=== PATIENT | female | born 1955 | race Caucasian/White ===

== ENCOUNTER → 2016-06-19 | Outpatient (CLI) | payer OTHER ==
[~2016-06-19] MED LIST: AMINOPHYLLIN200 MG PO; ATIVAN0.5 MG PO; BACTRIM 400 MG-1 TAB; BACTRIM PO; BAYER ASPIRIN C81 MG PO; BAYER GENUINE325 M1 PO; CELLCEPT500 MG PO; CITALOPRAM40 MG PO; Duragesic 25 M25 MCG INTRADERM; Duragesic 50 M50 MCG T; ELIQUIS5 M1 PO; FENTANYL TR50 MCG/HR TD; FLAGYL500 MG PO; FLORINEF ACETA0.1 MG; FLUDROCORTISON0.1 MG PO; GABAPENTIN TAB600 MG PO; LOMOTIL 0.025 M1 TA1 PO; LOPRESSOR25 MG PO; LOVENOX30 MG/0.3; Lopressor25 MG PO; MAG-G500 MG PO; METOPROLOL SUCC25 M2 PO; MIDODRINE HCL2.5 MG PO; MIDODRINE HCL5 M1 PO; NITROGLYCERIN0.4 MG SL; OMEPRAZOLE20 M2 PO; OXYCODONE HYDRO; PAROXETINE40 MG PO; PRAVACHOL20 MG PO; PRILOSEC OTC20 MG PO; PROGRAF1 MG PO; SERTRALINE HYD100 MG PO; SIMVASTATIN20 MG PO; SODIUM BICARBO650 MG PO; STOOL SOFTENER100 MG PO; TACROLIMUS1 MG PO; VICODIN 500 MG-1 TAB PO; VISTARIL50 MG PO; VITAMIN D32000 UNI1 PO; VITAMIN D34000 UNIT PO; ZESTRIL,PRINIVIL5 MG PO; ZOFRAN ODT4 MG SL
[2016-06-19 16:38] LABS: ALBUMIN 3.6 gm/dl (3.1-4.5); ALKALINE PHOSPHATASE 65 U/L (45-117); BILIRUBIN, DIRECT < 0.1 mg/dL (0.0-0.2); BILIRUBIN, TOTAL 0.4 mg/dl (0.2-1.0); SGOT/AST 12 IU/L (3-35); SGPT/ALT 14 U/L (12-78)
== END | disposition home or self-care (01) ==
LOC: LAB 14:58
PROVIDERS: Internal Medicine Cardiovascular Disease
DX: I25.10 Atherosclerotic heart disease of native coronary artery without angina pectoris (principal); E78.2 Mixed hyperlipidemia

== ENCOUNTER → 2016-06-25 | Outpatient (CLI) | payer OTHER ==
--- NOTE | ~2016-06-25 | ST ---
[place], [place] EXERCISE STRESS TEST REPORT NAME: ALVARADO CORTEZ [facility] #: [id number] UNIT #: [id number] ROOM: DOCTOR: COLEEN VANG,FRANSICO BIRTHDATE: [birth year] DOS: 06/25/2016 LEXISCAN STRESS TEST REFERRING PHYSICIAN: Dr. Camacho. REASON FOR TEST: Preoperative and also atrial fibrillation. PHYSICAL EXAMINATION NECK: Supple. LUNGS: Clear anteriorly. HEART: Regular rhythm. PROTOCOL: Lexiscan protocol. Maximum heart rate of 67. Peak blood pressure 98/50. SYMPTOMS: The patient had some nausea, which has resolved after giving 50 mg of intravenous aminophyllin. EKG: Resting EKG showed atrial paced with inferolateral ST-T changes. Stress EKG showed no new changes. CONCLUSION: Clinically, the patient is chest pain free, developed some nausea and dry heaves requiring intravenous aminophyllin 50 mg. EKG, no ischemia, underlying atrial pacing. POST-STRESS COMPLICATIONS: None. The patient received total of 0.4 mg Lexiscan. FRANSICO HORNE MD CM:STRESS:EXERCISE STRESS TEST REPORT [id number] FRANSICO HORNE MD
== END | disposition home or self-care (01) ==
LOC: CARD 02:40
DX: I48.0 Paroxysmal atrial fibrillation (principal); R07.2 Precordial pain; R53.81 Other malaise

== ENCOUNTER → 2016-08-25 | Outpatient (CLI) | payer OTHER ==
[2016-08-25 08:22] LABS: BASO % 0.4 % (0.0-1.0); EOS # 0.3 10*3/uL (0.0-0.4); EOS % 4.4 % (1.0-4.0); HEMATOCRIT 41.5 % (37.0-47.0); HEMOGLOBIN 12.9 g/dl (12.0-16.0); LYMPH # 1.3 10*3/uL (1.3-4.4); MEAN CELL VOLUME 91.6 fl (81.0-99.0); MEAN CORPUSCULAR HGB 28.5 pg (27.0-31.0); MEAN CORPUSCULAR HGB CONC 31.1 g/dl (33.0-37.0); MONO # 0.4 10*3/uL (0.1-1.0); MONO % 6.4 % (3.0-9.0); NEUT # 4.7 10*3/uL (2.3-7.9); NEUT % 69.5 % (47.0-73.0); PLATELET COUNT AUTOMATED 237 10*3/uL (130-400); RED BLOOD COUNT 4.53 10*6/uL (4.10-5.10); WHITE BLOOD COUNT 6.8 10*3/uL (4.8-10.8)
[2016-08-25 08:54] LABS: MAGNESIUM 1.9 mg/dL (1.5-2.1); PHOSPHOROUS 3.4 mg/dL (2.5-4.9); POTASSIUM 4.3 mmol/L (3.5-5.1)
== END | disposition home or self-care (01) ==
LOC: LAB 07:48
PROVIDERS: Internal Medicine Nephrology
DX: E10.8 Type 1 diabetes mellitus with unspecified complications (principal); E55.9 Vitamin D deficiency, unspecified; E34.9 Endocrine disorder, unspecified; D89.9 Disorder involving the immune mechanism, unspecified; E83.40 Disorders of magnesium metabolism, unspecified; T86.90 Unspecified complication of unspecified transplanted organ and tissue; Z94.83 Pancreas transplant status

== ENCOUNTER → 2016-10-29 | Outpatient (CLI) | payer OTHER ==
[2016-10-29 08:18] LABS: BASO % 0.3 % (0.0-1.0); EOS # 0.2 10*3/uL (0.0-0.4); EOS % 2.6 % (1.0-4.0); HEMATOCRIT 41.3 % (37.0-47.0); HEMOGLOBIN 12.9 g/dl (12.0-16.0); LYMPH # 1.1 10*3/uL (1.3-4.4); LYMPH % 11.6 % (27.0-41.0); MEAN CORPUSCULAR HGB 28.7 pg (27.0-31.0); MEAN CORPUSCULAR HGB CONC 31.2 g/dl (33.0-37.0); MEAN PLATELET VOLUME 10.6 fl (9.6-12.3); MONO # 0.6 10*3/uL (0.1-1.0); MONO % 6.1 % (3.0-9.0); NEUT # 7.4 10*3/uL (2.3-7.9); NEUT % 79.2 % (47.0-73.0); PLATELET COUNT AUTOMATED 211 10*3/uL (130-400); RED BLOOD COUNT 4.49 10*6/uL (4.10-5.10); RED CELL DISTRI WIDTH 12.8 % (0-14.5); WHITE BLOOD COUNT 9.4 10*3/uL (4.8-10.8)
[2016-10-29 08:43] LABS: BUN 19 mg/dl (7-24); CARBON DIOXIDE 32 mmol/L (21-32); CHLORIDE 110 mmol/L (98-107); EST GLOM FILT AFRICAN AMERICAN > 60 ml/min; GLUCOSE 93 mg/dL (65-99); MAGNESIUM 1.7 mg/dL (1.5-2.1); PHOSPHOROUS 2.7 mg/dL (2.5-4.9); POTASSIUM 4.3 mmol/L (3.5-5.1); SODIUM 143 mmol/L (136-145); URIC ACID 1.8 mg/dL (2.6-6.0)
== END | disposition home or self-care (01) ==
LOC: LAB 07:54
PROVIDERS: Internal Medicine Nephrology
DX: E10.8 Type 1 diabetes mellitus with unspecified complications (principal); E55.9 Vitamin D deficiency, unspecified; D89.9 Disorder involving the immune mechanism, unspecified; E34.9 Endocrine disorder, unspecified; T86.90 Unspecified complication of unspecified transplanted organ and tissue; Z94.83 Pancreas transplant status

== ENCOUNTER → 2016-11-26 | Outpatient (CLI) | payer OTHER ==
[2016-11-26 07:59] LABS: BASO % 0.3 % (0.0-1.0); EOS # 0.3 10*3/uL (0.0-0.4); EOS % 3.8 % (1.0-4.0); HEMOGLOBIN 12.5 g/dl (12.0-16.0); LYMPH # 1.3 10*3/uL (1.3-4.4); MEAN CELL VOLUME 92.2 fl (81.0-99.0); MEAN CORPUSCULAR HGB 28.8 pg (27.0-31.0); MEAN CORPUSCULAR HGB CONC 31.3 g/dl (33.0-37.0); MEAN PLATELET VOLUME 10.3 fl (9.6-12.3); MONO # 0.5 10*3/uL (0.1-1.0); MONO % 6.8 % (3.0-9.0); NEUT # 4.6 10*3/uL (2.3-7.9); NEUT % 69.8 % (47.0-73.0); PLATELET COUNT AUTOMATED 194 10*3/uL (130-400); RED BLOOD COUNT 4.34 10*6/uL (4.10-5.10); RED CELL DISTRI WIDTH 13.2 % (0-14.5); WHITE BLOOD COUNT 6.6 10*3/uL (4.8-10.8)
[2016-11-26 08:28] LABS: BUN 16 mg/dl (7-24); CARBON DIOXIDE 30 mmol/L (21-32); CHLORIDE 109 mmol/L (98-107); EST GLOM FILT AFRICAN AMERICAN > 60 ml/min; GLUCOSE 98 mg/dL (65-99); MAGNESIUM 1.8 mg/dL (1.5-2.1); PHOSPHOROUS 3.3 mg/dL (2.5-4.9); POTASSIUM 4.2 mmol/L (3.5-5.1); SODIUM 147 mmol/L (136-145)
== END | disposition home or self-care (01) ==
LOC: LAB 07:24
PROVIDERS: Internal Medicine Nephrology
DX: E55.9 Vitamin D deficiency, unspecified (principal); E34.9 Endocrine disorder, unspecified; E10.8 Type 1 diabetes mellitus with unspecified complications; D89.9 Disorder involving the immune mechanism, unspecified; T86.90 Unspecified complication of unspecified transplanted organ and tissue; Z94.83 Pancreas transplant status

== ENCOUNTER → 2016-12-25 | Outpatient (CLI) | payer OTHER ==
[2016-12-25 08:46] LABS: BASO % 0.3 % (0.0-1.0); EOS # 0.3 10*3/uL (0.0-0.4); EOS % 2.7 % (1.0-4.0); HEMATOCRIT 40.6 % (37.0-47.0); HEMOGLOBIN 12.6 g/dl (12.0-16.0); LYMPH # 1.1 10*3/uL (1.3-4.4); LYMPH % 11.4 % (27.0-41.0); MEAN CELL VOLUME 91.6 fl (81.0-99.0); MEAN CORPUSCULAR HGB 28.4 pg (27.0-31.0); MEAN PLATELET VOLUME 10.5 fl (9.6-12.3); MONO # 0.6 10*3/uL (0.1-1.0); MONO % 6.2 % (3.0-9.0); NEUT # 7.4 10*3/uL (2.3-7.9); NEUT % 79.1 % (47.0-73.0); PLATELET COUNT AUTOMATED 220 10*3/uL (130-400); RED BLOOD COUNT 4.43 10*6/uL (4.10-5.10); WHITE BLOOD COUNT 9.4 10*3/uL (4.8-10.8)
[2016-12-25 09:08] LABS: MAGNESIUM 1.6 mg/dL (1.5-2.1); PHOSPHOROUS 3.2 mg/dL (2.5-4.9); POTASSIUM 4.5 mmol/L (3.5-5.1); URIC ACID 1.9 mg/dL (2.6-6.0)
== END | disposition home or self-care (01) ==
LOC: LAB 07:48
PROVIDERS: Internal Medicine Nephrology
DX: E55.9 Vitamin D deficiency, unspecified (principal); D89.9 Disorder involving the immune mechanism, unspecified; T86.90 Unspecified complication of unspecified transplanted organ and tissue; E34.9 Endocrine disorder, unspecified; E10.8 Type 1 diabetes mellitus with unspecified complications; Z94.83 Pancreas transplant status

== ENCOUNTER → 2017-01-26 | Outpatient (CLI) | payer OTHER ==
[2017-01-26 08:20] LABS: BASO % 0.5 % (0.0-1.0); EOS # 0.2 10*3/uL (0.0-0.4); EOS % 3.7 % (1.0-4.0); HEMATOCRIT 41.7 % (37.0-47.0); HEMOGLOBIN 13.2 g/dl (12.0-16.0); LYMPH # 1.1 10*3/uL (1.3-4.4); LYMPH % 16.7 % (27.0-41.0); MEAN CELL VOLUME 92.5 fl (81.0-99.0); MEAN CORPUSCULAR HGB 29.3 pg (27.0-31.0); MEAN CORPUSCULAR HGB CONC 31.7 g/dl (33.0-37.0); MONO # 0.4 10*3/uL (0.1-1.0); MONO % 5.9 % (3.0-9.0); NEUT # 4.6 10*3/uL (2.3-7.9); NEUT % 73.2 % (47.0-73.0); PLATELET COUNT AUTOMATED 207 10*3/uL (130-400); RED BLOOD COUNT 4.51 10*6/uL (4.10-5.10); WHITE BLOOD COUNT 6.3 10*3/uL (4.8-10.8)
[2017-01-26 08:43] LABS: CREATININE 1.31 mg/dL (0.55-1.02); MAGNESIUM 1.6 mg/dL (1.5-2.1); POTASSIUM 3.9 mmol/L (3.5-5.1)
== END | disposition home or self-care (01) ==
LOC: LAB 07:57
PROVIDERS: Internal Medicine Nephrology
DX: E55.9 Vitamin D deficiency, unspecified (principal); E34.9 Endocrine disorder, unspecified; E10.8 Type 1 diabetes mellitus with unspecified complications; D89.9 Disorder involving the immune mechanism, unspecified; T86.90 Unspecified complication of unspecified transplanted organ and tissue; Z94.83 Pancreas transplant status

== ENCOUNTER → 2017-02-09 | Outpatient (CLI) | payer OTHER | END | disposition home or self-care (01) | LOC: RAD 11:16 | DX: K59.09 Other constipation (principal); Z90.49 Acquired absence of other specified parts of digestive tract; Z94.83 Pancreas transplant status ==

== ENCOUNTER → 2017-02-26 | Outpatient (CLI) | payer OTHER ==
[2017-02-26 09:19] LABS: BASO % 0.2 % (0.0-1.0); EOS # 0.2 10*3/uL (0.0-0.4); EOS % 2.2 % (1.0-4.0); HEMATOCRIT 40.8 % (37.0-47.0); HEMOGLOBIN 12.7 g/dl (12.0-16.0); LYMPH # 1.2 10*3/uL (1.3-4.4); LYMPH % 14.4 % (27.0-41.0); MEAN CELL VOLUME 91.9 fl (81.0-99.0); MEAN CORPUSCULAR HGB 28.6 pg (27.0-31.0); MEAN CORPUSCULAR HGB CONC 31.1 g/dl (33.0-37.0); MEAN PLATELET VOLUME 11.2 fl (9.6-12.3); MONO # 0.6 10*3/uL (0.1-1.0); MONO % 7.7 % (3.0-9.0); NEUT % 75.1 % (47.0-73.0); PLATELET COUNT AUTOMATED 225 10*3/uL (130-400); RED BLOOD COUNT 4.44 10*6/uL (4.10-5.10); RED CELL DISTRI WIDTH 12.7 % (0-14.5)
[2017-02-26 09:29] LABS: CREATININE 1.56 mg/dL (0.55-1.02); MAGNESIUM 1.9 mg/dL (1.5-2.1); PHOSPHOROUS 3.1 mg/dL (2.5-4.9); POTASSIUM 4.1 mmol/L (3.5-5.1); URIC ACID 2.2 mg/dL (2.6-6.0)
== END | disposition home or self-care (01) ==
LOC: LAB 07:48
PROVIDERS: Internal Medicine Nephrology
DX: E55.9 Vitamin D deficiency, unspecified (principal); E34.9 Endocrine disorder, unspecified; E10.8 Type 1 diabetes mellitus with unspecified complications; D89.9 Disorder involving the immune mechanism, unspecified; T86.90 Unspecified complication of unspecified transplanted organ and tissue; Z94.83 Pancreas transplant status

== ENCOUNTER → 2017-03-16 | Outpatient (CLI) | payer OTHER ==
[2017-03-16 08:32] LABS: BASO % 0.2 % (0.0-1.0); EOS # 0.2 10*3/uL (0.0-0.4); EOS % 2.2 % (1.0-4.0); HEMATOCRIT 40.8 % (37.0-47.0); HEMOGLOBIN 12.7 g/dl (12.0-16.0); LYMPH # 1.2 10*3/uL (1.3-4.4); LYMPH % 14.1 % (27.0-41.0); MEAN CELL VOLUME 91.3 fl (81.0-99.0); MEAN CORPUSCULAR HGB 28.4 pg (27.0-31.0); MEAN CORPUSCULAR HGB CONC 31.1 g/dl (33.0-37.0); MEAN PLATELET VOLUME 10.5 fl (9.6-12.3); MONO # 0.6 10*3/uL (0.1-1.0); MONO % 6.7 % (3.0-9.0); NEUT # 6.3 10*3/uL (2.3-7.9); NEUT % 76.6 % (47.0-73.0); PLATELET COUNT AUTOMATED 217 10*3/uL (130-400); RED BLOOD COUNT 4.47 10*6/uL (4.10-5.10); RED CELL DISTRI WIDTH 12.4 % (0-14.5); WHITE BLOOD COUNT 8.3 10*3/uL (4.8-10.8)
[2017-03-16 08:47] LABS: CREATININE 1.39 mg/dL (0.55-1.02); MAGNESIUM 1.7 mg/dL (1.5-2.1); PHOSPHOROUS 3.2 mg/dL (2.5-4.9); POTASSIUM 4.6 mmol/L (3.5-5.1); URIC ACID 2.3 mg/dL (2.6-6.0)
== END | disposition home or self-care (01) ==
LOC: LAB 07:43
PROVIDERS: Internal Medicine Nephrology
DX: E10.8 Type 1 diabetes mellitus with unspecified complications (principal); E55.9 Vitamin D deficiency, unspecified; E34.9 Endocrine disorder, unspecified; D89.9 Disorder involving the immune mechanism, unspecified; T86.90 Unspecified complication of unspecified transplanted organ and tissue; Z94.83 Pancreas transplant status

== ENCOUNTER → 2017-04-29 | Outpatient (CLI) | payer OTHER ==
[2017-04-29 08:16] LABS: BASO % 0.6 % (0.0-1.0); EOS # 0.2 10*3/uL (0.0-0.4); EOS % 3.2 % (1.0-4.0); HEMATOCRIT 40.8 % (37.0-47.0); HEMOGLOBIN 12.7 g/dl (12.0-16.0); LYMPH # 1.2 10*3/uL (1.3-4.4); LYMPH % 16.3 % (27.0-41.0); MEAN CELL VOLUME 91.7 fl (81.0-99.0); MEAN CORPUSCULAR HGB 28.5 pg (27.0-31.0); MEAN CORPUSCULAR HGB CONC 31.1 g/dl (33.0-37.0); MEAN PLATELET VOLUME 10.4 fl (9.6-12.3); MONO # 0.5 10*3/uL (0.1-1.0); MONO % 7.2 % (3.0-9.0); NEUT # 5.3 10*3/uL (2.3-7.9); NEUT % 72.4 % (47.0-73.0); PLATELET COUNT AUTOMATED 206 10*3/uL (130-400); RED BLOOD COUNT 4.45 10*6/uL (4.10-5.10); RED CELL DISTRI WIDTH 12.8 % (0-14.5); WHITE BLOOD COUNT 7.3 10*3/uL (4.8-10.8)
[2017-04-29 08:44] LABS: CREATININE 1.32 mg/dL (0.55-1.02); PHOSPHOROUS 2.7 mg/dL (2.5-4.9); POTASSIUM 4.3 mmol/L (3.5-5.1)
== END | disposition home or self-care (01) ==
LOC: LAB 07:54
PROVIDERS: Internal Medicine Nephrology
DX: E83.40 Disorders of magnesium metabolism, unspecified (principal); E34.9 Endocrine disorder, unspecified; E10.8 Type 1 diabetes mellitus with unspecified complications; D89.9 Disorder involving the immune mechanism, unspecified; T86.90 Unspecified complication of unspecified transplanted organ and tissue; Z94.83 Pancreas transplant status

== ENCOUNTER → 2017-06-12 | Outpatient (CLI) | payer OTHER ==
[2017-06-12 09:20] LABS: BASO % 0.4 % (0.0-1.0); EOS # 0.6 10*3/uL (0.0-0.4); EOS % 7.3 % (1.0-4.0); HEMATOCRIT 39.4 % (37.0-47.0); HEMOGLOBIN 12.3 g/dl (12.0-16.0); LYMPH # 1.5 10*3/uL (1.3-4.4); LYMPH % 17.7 % (27.0-41.0); MEAN CORPUSCULAR HGB 28.1 pg (27.0-31.0); MEAN CORPUSCULAR HGB CONC 31.2 g/dl (33.0-37.0); MEAN PLATELET VOLUME 11.1 fl (9.6-12.3); MONO # 0.5 10*3/uL (0.1-1.0); MONO % 5.7 % (3.0-9.0); NEUT # 5.6 10*3/uL (2.3-7.9); NEUT % 68.5 % (47.0-73.0); PLATELET COUNT AUTOMATED 239 10*3/uL (130-400); RED BLOOD COUNT 4.38 10*6/uL (4.10-5.10); RED CELL DISTRI WIDTH 12.7 % (0-14.5); WHITE BLOOD COUNT 8.2 10*3/uL (4.8-10.8)
[2017-06-12 09:22] LABS: CREATININE 1.54 mg/dL (0.55-1.02); PHOSPHOROUS 2.7 mg/dL (2.5-4.9); POTASSIUM 3.9 mmol/L (3.5-5.1); URIC ACID 1.8 mg/dL (2.6-6.0)
== END | disposition home or self-care (01) ==
LOC: LAB 08:05
PROVIDERS: Internal Medicine Nephrology
DX: Z48.89 Encounter for other specified surgical aftercare (principal); Z94.0 Kidney transplant status

== ENCOUNTER → 2017-07-22 | Outpatient (CLI) | payer OTHER ==
[2017-07-22 08:42] LABS: BASO % 0.7 % (0.0-1.0); EOS # 0.2 10*3/uL (0.0-0.4); EOS % 3.8 % (1.0-4.0); HEMATOCRIT 40.4 % (37.0-47.0); HEMOGLOBIN 12.4 g/dl (12.0-16.0); LYMPH # 1.1 10*3/uL (1.3-4.4); LYMPH % 18.3 % (27.0-41.0); MEAN CELL VOLUME 90.6 fl (81.0-99.0); MEAN CORPUSCULAR HGB 27.8 pg (27.0-31.0); MEAN CORPUSCULAR HGB CONC 30.7 g/dl (33.0-37.0); MEAN PLATELET VOLUME 11.1 fl (9.6-12.3); MONO # 0.4 10*3/uL (0.1-1.0); MONO % 7.4 % (3.0-9.0); NEUT # 4.1 10*3/uL (2.3-7.9); NEUT % 69.5 % (47.0-73.0); PLATELET COUNT AUTOMATED 203 10*3/uL (130-400); RED BLOOD COUNT 4.46 10*6/uL (4.10-5.10); RED CELL DISTRI WIDTH 13.2 % (0-14.5); WHITE BLOOD COUNT 5.9 10*3/uL (4.8-10.8)
[2017-07-22 09:05] LABS: CREATININE 1.37 mg/dL (0.55-1.02); PHOSPHOROUS 3.2 mg/dL (2.5-4.9); POTASSIUM 4.7 mmol/L (3.5-5.1); URIC ACID 2.2 mg/dL (2.6-6.0)
== END | disposition home or self-care (01) ==
LOC: LAB 07:58
PROVIDERS: Internal Medicine Nephrology
DX: Z48.22 Encounter for aftercare following kidney transplant (principal); Z94.0 Kidney transplant status

== ENCOUNTER → 2017-08-06 | Outpatient (CLI) | payer OTHER ==
[2017-08-06 08:37] LABS: BASO % 0.5 % (0.0-1.0); EOS # 0.3 10*3/uL (0.0-0.4); EOS % 3.6 % (1.0-4.0); HEMATOCRIT 40.4 % (37.0-47.0); HEMOGLOBIN 12.5 g/dl (12.0-16.0); LYMPH # 1.5 10*3/uL (1.3-4.4); LYMPH % 19.6 % (27.0-41.0); MEAN CELL VOLUME 90.8 fl (81.0-99.0); MEAN CORPUSCULAR HGB 28.1 pg (27.0-31.0); MEAN CORPUSCULAR HGB CONC 30.9 g/dl (33.0-37.0); MEAN PLATELET VOLUME 10.8 fl (9.6-12.3); MONO # 0.6 10*3/uL (0.1-1.0); MONO % 7.4 % (3.0-9.0); NEUT # 5.2 10*3/uL (2.3-7.9); NEUT % 68.6 % (47.0-73.0); PLATELET COUNT AUTOMATED 209 10*3/uL (130-400); RED BLOOD COUNT 4.45 10*6/uL (4.10-5.10); RED CELL DISTRI WIDTH 13.2 % (0-14.5); WHITE BLOOD COUNT 7.5 10*3/uL (4.8-10.8)
[2017-08-06 09:02] LABS: ALBUMIN 3.6 gm/dl (3.1-4.5); CREATININE 1.6 mg/dL (0.55-1.02)
[2017-08-06 09:03] LABS: PHOSPHOROUS 3.3 mg/dL (2.5-4.9); URIC ACID 2.4 mg/dL (2.6-6.0)
[2017-08-06 09:04] LABS: TOTAL PROTEIN 7.2 gm/dL (6.4-8.2)
== END | disposition home or self-care (01) ==
LOC: LAB 07:54
PROVIDERS: Family Medicine; Specialist
DX: I10 Essential (primary) hypertension (principal); E78.00 Pure hypercholesterolemia, unspecified; D89.9 Disorder involving the immune mechanism, unspecified; T86.90 Unspecified complication of unspecified transplanted organ and tissue; E83.40 Disorders of magnesium metabolism, unspecified; Z79.899 Other long term (current) drug therapy; Z94.83 Pancreas transplant status

== ENCOUNTER → 2017-08-26 | Outpatient (CLI) | payer OTHER ==
[2017-08-26 08:24] LABS: BASO % 0.5 % (0.0-1.0); EOS # 0.2 10*3/uL (0.0-0.4); EOS % 2.8 % (1.0-4.0); HEMATOCRIT 40.8 % (37.0-47.0); HEMOGLOBIN 13.1 g/dl (12.0-16.0); LYMPH # 1.2 10*3/uL (1.3-4.4); LYMPH % 16.1 % (27.0-41.0); MEAN CELL VOLUME 89.5 fl (81.0-99.0); MEAN CORPUSCULAR HGB 28.7 pg (27.0-31.0); MEAN CORPUSCULAR HGB CONC 32.1 g/dl (33.0-37.0); MEAN PLATELET VOLUME 10.8 fl (9.6-12.3); MONO # 0.5 10*3/uL (0.1-1.0); MONO % 6.3 % (3.0-9.0); NEUT # 5.5 10*3/uL (2.3-7.9); NEUT % 74.2 % (47.0-73.0); PLATELET COUNT AUTOMATED 205 10*3/uL (130-400); RED BLOOD COUNT 4.56 10*6/uL (4.10-5.10); WHITE BLOOD COUNT 7.4 10*3/uL (4.8-10.8)
[2017-08-26 08:47] LABS: CREATININE 1.42 mg/dL (0.55-1.02); PHOSPHOROUS 2.7 mg/dL (2.5-4.9); POTASSIUM 3.9 mmol/L (3.5-5.1); URIC ACID 2.1 mg/dL (2.6-6.0)
== END | disposition home or self-care (01) ==
LOC: LAB 07:48
PROVIDERS: Specialist
DX: E83.40 Disorders of magnesium metabolism, unspecified (principal); D89.9 Disorder involving the immune mechanism, unspecified; T86.90 Unspecified complication of unspecified transplanted organ and tissue; Z79.899 Other long term (current) drug therapy; Z94.83 Pancreas transplant status

== ENCOUNTER 2017-08-30 07:33 | Emergency (ER) | payer OTHER ==
[~2017-08-30] VITALS: Ht 172.7 cm; Wt 77.1 kg
[2017-08-30 07:39] VITALS: BP 134/45
[2017-08-30] MEDS ORDERED: WELLBUTRIN SR150 MG PO (07:44)
== END 2017-08-30 09:19 | disposition home or self-care (01) ==
LOC: ED 07:33
DX: S96.912A Strain of unspecified muscle and tendon at ankle and foot level, left foot, initial encounter (principal); S93.602A Unspecified sprain of left foot, initial encounter; S93.402A Sprain of unspecified ligament of left ankle, initial encounter; I25.10 Atherosclerotic heart disease of native coronary artery without angina pectoris; E78.5 Hyperlipidemia, unspecified; E11.40 Type 2 diabetes mellitus with diabetic neuropathy, unspecified; Z79.899 Other long term (current) drug therapy; W05.0XXA Fall from non-moving wheelchair, initial encounter; Y93.89 Activity, other specified; Y92.89 Other specified places as the place of occurrence of the external cause; Y99.8 Other external cause status

== ENCOUNTER → 2017-09-23 | Outpatient (CLI) | payer OTHER ==
[~2017-09-23] MED LIST changes: +WELLBUTRIN SR150 MG PO
[2017-09-23 09:16] LABS: BASO % 0.4 % (0.0-1.0); EOS # 0.2 10*3/uL (0.0-0.4); EOS % 2.7 % (1.0-4.0); HEMATOCRIT 42.4 % (37.0-47.0); HEMOGLOBIN 12.9 g/dl (12.0-16.0); LYMPH # 1.2 10*3/uL (1.3-4.4); LYMPH % 16.6 % (27.0-41.0); MEAN CORPUSCULAR HGB 28.6 pg (27.0-31.0); MEAN CORPUSCULAR HGB CONC 30.4 g/dl (33.0-37.0); MEAN PLATELET VOLUME 10.6 fl (9.6-12.3); MONO # 0.5 10*3/uL (0.1-1.0); MONO % 7.2 % (3.0-9.0); NEUT # 5.1 10*3/uL (2.3-7.9); NEUT % 72.8 % (47.0-73.0); PLATELET COUNT AUTOMATED 200 10*3/uL (130-400); RED BLOOD COUNT 4.51 10*6/uL (4.10-5.10); RED CELL DISTRI WIDTH 13.2 % (0-14.5)
[2017-09-23 09:43] LABS: POTASSIUM 4.5 mmol/L (3.5-5.1); URIC ACID 2.3 mg/dL (2.6-6.0)
[2017-09-23 09:44] LABS: CREATININE 1.47 mg/dL (0.55-1.02); PHOSPHOROUS 3.2 mg/dL (2.5-4.9)
== END | disposition home or self-care (01) ==
LOC: LAB 08:39
PROVIDERS: Specialist
DX: D89.9 Disorder involving the immune mechanism, unspecified (principal); E83.40 Disorders of magnesium metabolism, unspecified; T86.90 Unspecified complication of unspecified transplanted organ and tissue; Z94.83 Pancreas transplant status; Z79.899 Other long term (current) drug therapy

== ENCOUNTER → 2017-10-21 | Outpatient (CLI) | payer OTHER ==
[2017-10-21 08:58] LABS: BASO % 0.5 % (0.0-1.0); EOS # 0.1 10*3/uL (0.0-0.4); EOS % 2.3 % (1.0-4.0); HEMATOCRIT 42.5 % (37.0-47.0); HEMOGLOBIN 13.1 g/dl (12.0-16.0); LYMPH % 15.9 % (27.0-41.0); MEAN CELL VOLUME 92.4 fl (81.0-99.0); MEAN CORPUSCULAR HGB 28.5 pg (27.0-31.0); MEAN CORPUSCULAR HGB CONC 30.8 g/dl (33.0-37.0); MEAN PLATELET VOLUME 10.5 fl (9.6-12.3); MONO # 0.5 10*3/uL (0.1-1.0); MONO % 8.1 % (3.0-9.0); NEUT # 4.4 10*3/uL (2.3-7.9); PLATELET COUNT AUTOMATED 209 10*3/uL (130-400); RED CELL DISTRI WIDTH 12.9 % (0-14.5)
[2017-10-21 09:16] LABS: CREATININE 1.3 mg/dL (0.55-1.02); PHOSPHOROUS 3.2 mg/dL (2.5-4.9); POTASSIUM 3.9 mmol/L (3.5-5.1); URIC ACID 2.1 mg/dL (2.6-6.0)
== END | disposition home or self-care (01) ==
LOC: LAB 08:33
PROVIDERS: Specialist
DX: E83.40 Disorders of magnesium metabolism, unspecified (principal); D89.9 Disorder involving the immune mechanism, unspecified; T86.90 Unspecified complication of unspecified transplanted organ and tissue; Z94.83 Pancreas transplant status; Z79.899 Other long term (current) drug therapy

== ENCOUNTER → 2017-12-29 | Outpatient (CLI) | payer OTHER ==
[2017-12-29 07:45] LABS: BASO % 0.3 % (0.0-1.0); EOS # 0.2 10*3/uL (0.0-0.4); EOS % 2.7 % (1.0-4.0); HEMATOCRIT 41.2 % (37.0-47.0); HEMOGLOBIN 12.8 g/dl (12.0-16.0); LYMPH # 1.2 10*3/uL (1.3-4.4); LYMPH % 17.4 % (27.0-41.0); MEAN CORPUSCULAR HGB 28.6 pg (27.0-31.0); MEAN CORPUSCULAR HGB CONC 31.1 g/dl (33.0-37.0); MEAN PLATELET VOLUME 10.6 fl (9.6-12.3); MONO # 0.5 10*3/uL (0.1-1.0); MONO % 6.7 % (3.0-9.0); NEUT # 4.9 10*3/uL (2.3-7.9); NEUT % 72.6 % (47.0-73.0); PLATELET COUNT AUTOMATED 193 10*3/uL (130-400); RED BLOOD COUNT 4.48 10*6/uL (4.10-5.10); RED CELL DISTRI WIDTH 12.8 % (0-14.5); WHITE BLOOD COUNT 6.7 10*3/uL (4.8-10.8)
[2017-12-29 08:09] LABS: CREATININE 1.44 mg/dL (0.55-1.02); PHOSPHOROUS 3.2 mg/dL (2.5-4.9); POTASSIUM 4.2 mmol/L (3.5-5.1); URIC ACID 2.5 mg/dL (2.6-6.0)
== END | disposition home or self-care (01) ==
LOC: LAB 07:26
PROVIDERS: Specialist
DX: E83.40 Disorders of magnesium metabolism, unspecified (principal); T86.90 Unspecified complication of unspecified transplanted organ and tissue; D89.9 Disorder involving the immune mechanism, unspecified; Z79.899 Other long term (current) drug therapy; Z94.83 Pancreas transplant status

== ENCOUNTER 2018-06-23 10:12 | Emergency (ER) | payer OTHER ==
[~2018-06-23] VITALS: Ht 172.7 cm; Wt 77.1 kg
[2018-06-23 10:17] VITALS: BP 117/60
[2018-06-23 11:11] LABS: BASO % 0.5 % (0.0-1.0); EOS # 0.2 10*3/uL (0.0-0.4); EOS % 2.5 % (1.0-4.0); HEMATOCRIT 37.8 % (37.0-47.0); HEMOGLOBIN 11.7 g/dl (12.0-16.0); LYMPH # 0.9 10*3/uL (1.3-4.4); MEAN CELL VOLUME 94.5 fl (81.0-99.0); MEAN CORPUSCULAR HGB 29.3 pg (27.0-31.0); MEAN PLATELET VOLUME 10.3 fl (9.6-12.3); MONO # 0.6 10*3/uL (0.1-1.0); MONO % 9.5 % (3.0-9.0); NEUT # 4.5 10*3/uL (2.3-7.9); NEUT % 73.3 % (47.0-73.0); PLATELET COUNT AUTOMATED 190 10*3/uL (130-400); WHITE BLOOD COUNT 6.1 10*3/uL (4.8-10.8)
[2018-06-23] MEDS ORDERED: GABAPENTIN800 MG PO (11:11)
[2018-06-23] MEDS ORDERED: SIMVASTATIN10 MG PO (11:12)
[2018-06-23] MEDS ORDERED: SERTRALINE HYD100 MG PO (11:12)
[2018-06-23] MEDS ORDERED: DURAGESIC1 EAC2 TD (11:12)
[2018-06-23] MEDS ORDERED: WELLBUTRIN SR150 MG PO (11:13)
[2018-06-23] MEDS ORDERED: MIDODRINE HCL5 M1 PO (11:13)
[2018-06-23] MEDS ORDERED: FLUDROCORTISON0.1 MG PO (11:13)
[2018-06-23] MEDS ORDERED: ELIQUIS5 M1 PO (11:14)
[2018-06-23] MEDS ORDERED: BACTRIM 400-801 EACH PO (11:15)
[2018-06-23] MEDS ORDERED: TACROLIMUS1 M1 PO (11:15)
[2018-06-23] MEDS ORDERED: MYCOPHENOLATE500 MG PO (11:16)
[2018-06-23] MEDS ORDERED: CONSTULOSE10 GM/151 PO (11:16)
[2018-06-23] MEDS ORDERED: TOPROL XL25 MG PO (11:16)
[2018-06-23 11:25] LABS: ALBUMIN 3.1 gm/dl (3.1-4.5); CREATININE 1.27 mg/dL (0.55-1.02); TOTAL PROTEIN 6.5 gm/dL (6.4-8.2)
[2018-06-23 11:30] LABS: BILIRUBIN NEGATIVE (NEGATIVE); BLOOD 1+ (NEGATIVE); CLARITY CLOUDY (CLEAR); COLOR YELLOW (YELLOW); GLUCOSE NEGATIVE (NEGATIVE); KETONE TRACE (NEGATIVE); LEUKO ESTERASE 1+ (NEGATIVE); NITRITE POSITIVE (NEGATIVE); SPECIFIC GRAVITY >= 1.030 (1.005-1.030)
[2018-06-23 11:43] LABS: BACTERIA 3+; CALCIUM OXALATE CRYSTALS 1+; WBC 41-50 wbc/hpf (0-5)
[2018-06-23] MEDS ORDERED: CEFUROXIME AXE500 MG PO (12:19)
== END 2018-06-23 12:30 | disposition home or self-care (01) ==
LOC: ED 10:12
PROVIDERS: Nurse Practitioner Family
DX: N39.0 Urinary tract infection, site not specified (principal); K59.00 Constipation, unspecified; Z79.899 Other long term (current) drug therapy

== ENCOUNTER → 2018-07-25 | Outpatient (CLI) | payer OTHER ==
[~2018-07-25] MED LIST changes: +BACTRIM 400-801 EACH PO; +CEFUROXIME AXE500 MG PO; +CONSTULOSE10 GM/151 PO; +DURAGESIC1 EAC2 TD; +GABAPENTIN800 MG PO; +MYCOPHENOLATE500 MG PO; +SIMVASTATIN10 MG PO; +TACROLIMUS1 M1 PO; +TOPROL XL25 MG PO
[2018-07-25 09:51] LABS: BASO % 0.6 % (0.0-1.0); EOS # 0.2 10*3/uL (0.0-0.4); EOS % 2.3 % (1.0-4.0); HEMATOCRIT 40.4 % (37.0-47.0); HEMOGLOBIN 12.8 g/dl (12.0-16.0); LYMPH % 13.5 % (27.0-41.0); MEAN CELL VOLUME 93.3 fl (81.0-99.0); MEAN CORPUSCULAR HGB 29.6 pg (27.0-31.0); MEAN CORPUSCULAR HGB CONC 31.7 g/dl (33.0-37.0); MEAN PLATELET VOLUME 10.8 fl (9.6-12.3); MONO # 0.6 10*3/uL (0.1-1.0); MONO % 8.3 % (3.0-9.0); NEUT # 5.3 10*3/uL (2.3-7.9); PLATELET COUNT AUTOMATED 215 10*3/uL (130-400); RED BLOOD COUNT 4.33 10*6/uL (4.10-5.10); RED CELL DISTRI WIDTH 12.8 % (0-14.5); WHITE BLOOD COUNT 7.1 10*3/uL (4.8-10.8)
[2018-07-25 09:53] LABS: URINE CREATININE RANDOM 60.9 mg/dL
[2018-07-25 10:11] LABS: ALBUMIN 3.7 gm/dl (3.1-4.5); CREATININE 1.62 mg/dL (0.55-1.02); POTASSIUM 3.7 mmol/L (3.5-5.1); TOTAL PROTEIN 7.3 gm/dL (6.4-8.2); URIC ACID 2.4 mg/dL (2.6-6.0)
[2018-07-25 10:58] LABS: PTH INTACT 180.5 pg/mL (18.5-88.0); VITAMIN D, 25-HYDROXY 22.9 ng/mL (30-100)
== END | disposition home or self-care (01) ==
LOC: LAB 08:56
PROVIDERS: Internal Medicine Nephrology
DX: E55.9 Vitamin D deficiency, unspecified (principal); T86.90 Unspecified complication of unspecified transplanted organ and tissue; Z94.83 Pancreas transplant status; Z79.899 Other long term (current) drug therapy

== ENCOUNTER → 2018-10-05 | Outpatient (CLI) | payer OTHER ==
[2018-10-05 09:38] LABS: BASO % 0.5 % (0.0-1.0); EOS # 0.2 10*3/uL (0.0-0.4); EOS % 3.6 % (1.0-4.0); HEMATOCRIT 41.7 % (37.0-47.0); HEMOGLOBIN 12.8 g/dl (12.0-16.0); LYMPH # 0.8 10*3/uL (1.3-4.4); MEAN CELL VOLUME 94.3 fl (81.0-99.0); MEAN CORPUSCULAR HGB CONC 30.7 g/dl (33.0-37.0); MEAN PLATELET VOLUME 11.2 fl (9.6-12.3); MONO # 0.4 10*3/uL (0.1-1.0); MONO % 5.9 % (3.0-9.0); NEUT # 4.9 10*3/uL (2.3-7.9); NEUT % 76.8 % (47.0-73.0); PLATELET COUNT AUTOMATED 191 10*3/uL (130-400); RED BLOOD COUNT 4.42 10*6/uL (4.10-5.10); RED CELL DISTRI WIDTH 12.9 % (0-14.5); WHITE BLOOD COUNT 6.3 10*3/uL (4.8-10.8)
[2018-10-05 10:00] LABS: ALBUMIN 3.7 gm/dl (3.1-4.5); PHOSPHOROUS 2.9 mg/dL (2.5-4.9)
[2018-10-05 10:02] LABS: URINE CREATININE RANDOM 63.2 mg/dL
[2018-10-05 10:02] LABS: CREATININE 1.42 mg/dL (0.55-1.02); URIC ACID 2.2 mg/dL (2.6-6.0)
[2018-10-05 10:54] LABS: VITAMIN D, 25-HYDROXY 30.1 ng/mL (30-100)
[2018-10-05 10:55] LABS: PTH INTACT 153.5 pg/mL (18.5-88.0)
== END | disposition home or self-care (01) ==
LOC: LAB 08:53
PROVIDERS: Internal Medicine Nephrology
DX: Z94.83 Pancreas transplant status (principal); T86.91 Unspecified transplanted organ and tissue rejection; Z79.899 Other long term (current) drug therapy; E55.9 Vitamin D deficiency, unspecified

== ENCOUNTER → 2018-12-29 | Outpatient (CLI) | payer OTHER ==
[2018-12-29 08:20] LABS: BASO % 0.6 % (0.0-1.0); EOS # 0.2 10*3/uL (0.0-0.4); EOS % 3.2 % (1.0-4.0); HEMATOCRIT 40.5 % (37.0-47.0); HEMOGLOBIN 12.4 g/dl (12.0-16.0); LYMPH # 1.5 10*3/uL (1.3-4.4); MEAN CELL VOLUME 94.4 fl (81.0-99.0); MEAN CORPUSCULAR HGB 28.9 pg (27.0-31.0); MEAN CORPUSCULAR HGB CONC 30.6 g/dl (33.0-37.0); MONO # 0.6 10*3/uL (0.1-1.0); MONO % 8.7 % (3.0-9.0); NEUT # 4.3 10*3/uL (2.3-7.9); NEUT % 64.3 % (47.0-73.0); PLATELET COUNT AUTOMATED 209 10*3/uL (130-400); RED BLOOD COUNT 4.29 10*6/uL (4.10-5.10); RED CELL DISTRI WIDTH 13.4 % (0-14.5); WHITE BLOOD COUNT 6.7 10*3/uL (4.8-10.8)
[2018-12-29 08:37] LABS: CREATININE 1.89 mg/dL (0.55-1.02); PHOSPHOROUS 3.6 mg/dL (2.5-4.9); POTASSIUM 4.6 mmol/L (3.5-5.1); URIC ACID 3.3 mg/dL (2.6-6.0)
== END | disposition home or self-care (01) ==
LOC: LAB 07:32
PROVIDERS: Nurse Practitioner Family
DX: D89.9 Disorder involving the immune mechanism, unspecified (principal); T86.90 Unspecified complication of unspecified transplanted organ and tissue; E83.40 Disorders of magnesium metabolism, unspecified; Z79.899 Other long term (current) drug therapy

== ENCOUNTER 2019-02-04 09:09 | Inpatient (IN) | payer OTHER ==
[2019-02-04] VITALS (8 sets, daily range): BP systolic 119–166; BP diastolic 44–62
[~2019-02-04] VITALS: Ht 175.3 cm; Wt 82.6 kg
--- NOTE | ~2019-02-04 | EKG ---
[place], [place] ELECTROCARDIOGRAM REPORT NAME: ALVARADO CORTEZ UNIT #: [id number] ROOM: 504 DOCTOR: JAVI DRAFT REPORT BIRTHDATE: [birth year] [facility] Test Date: 2019-02-04 Test Time: 10:16:04 Pat Name: ALVARADO CORTEZ Department: Room: [facility] Gender: F Nail Specialist: Theresa Gnat : 1955 Requested By: SAUL PIERRE Order Number: [id number] Reading MD: Ruth Green MD Measurements Intervals [place] Rate: 64 P: 84 SD: 154 QRS: 78 QRSD: 91 T: 74 QT: 508 QTc: 525 Interpretive Statements Sinus rhythm Borderline ST depression, anterolateral leads Prolonged QT interval No previous ECG available for comparison Electronically Signed On 02-06-2019 7:44:53 PDT by Ruth Green MD CM:EKGRPT:ELECTROCARDIOGRAM REPORT [id number] SAUL PINTO DRAFT REPORT SAUL PIERRE DO
[~2019-02-04 09:09] MED LIST changes: +DURAGESIC1 EAC2 T; -DURAGESIC1 EAC2 TD
[2019-02-04 10:51] LABS: BASO % 0.3 % (0.0-1.0); EOS % 0.3 % (1.0-4.0); HEMATOCRIT 39.7 % (37.0-47.0); HEMOGLOBIN 12.7 g/dl (12.0-16.0); LYMPH # 1.1 10*3/uL (1.3-4.4); LYMPH % 9.4 % (27.0-41.0); MEAN CELL VOLUME 91.1 fl (81.0-99.0); MEAN CORPUSCULAR HGB 29.1 pg (27.0-31.0); MEAN PLATELET VOLUME 11.6 fl (9.6-12.3); MONO # 0.7 10*3/uL (0.1-1.0); MONO % 5.9 % (3.0-9.0); NEUT % 83.8 % (47.0-73.0); PLATELET COUNT AUTOMATED 222 10*3/uL (130-400); RED BLOOD COUNT 4.36 10*6/uL (4.10-5.10); RED CELL DISTRI WIDTH 12.8 % (0-14.5); WHITE BLOOD COUNT 11.9 10*3/uL (4.8-10.8)
[2019-02-04 11:05] LABS: ACT PARTIAL THROMBO TIME 27.1 SECONDS (20.0-32.1); INTERNATIONAL NORM RATIO 1.1 (2.0-3.5)
[2019-02-04 11:08] LABS: BUN 19 mg/dl (7-24); CHLORIDE 104 mmol/L (98-107); LIPASE 97 U/L (73-393); POTASSIUM 3.2 mmol/L (3.5-5.1); SGOT/AST 11 IU/L (3-35); SGPT/ALT 10 U/L (12-78); SODIUM 140 mmol/L (136-145)
[2019-02-04 11:10] LABS: ALKALINE PHOSPHATASE 48 U/L (45-117); TOTAL PROTEIN 7.2 gm/dL (6.4-8.2)
[2019-02-04 11:23] LABS: TROPONIN I < 0.015 ng/ml (<0.045)
[2019-02-04 12:52] LABS: BILIRUBIN 1+ (NEGATIVE); BLOOD TRACE-INTACT (NEGATIVE); CLARITY SL CLOUDY (CLEAR); COLOR YELLOW (YELLOW); GLUCOSE NEGATIVE (NEGATIVE); KETONE 1+ (NEGATIVE); LEUKO ESTERASE NEGATIVE (NEGATIVE); NITRITE NEGATIVE (NEGATIVE); UROBILINOGEN 0.2 E.U./dl (0.2-1.0)
[2019-02-04 13:07] LABS: BACTERIA 1+; WBC 0-2 wbc/hpf (0-5)
[2019-02-04] MEDS ORDERED: TACROLIMUS1 MG PO (16:29)
[2019-02-04] MEDS ORDERED: OYSTER SHELL C1 EAC3 PO (16:32)
[2019-02-04] MEDS ORDERED: FOSAMAX70 M1 PO (16:37)
[2019-02-05] VITALS: BP 154/50
[2019-02-05] MEDS ORDERED: LEVORPHANOL TART2 MG PO (02:59)
[2019-02-05 06:19] LABS: BASO % 0.4 % (0.0-1.0); EOS % 0.1 % (1.0-4.0); HEMATOCRIT 36.3 % (37.0-47.0); HEMOGLOBIN 11.7 g/dl (12.0-16.0); LYMPH # 0.7 10*3/uL (1.3-4.4); LYMPH % 8.6 % (27.0-41.0); MEAN CELL VOLUME 90.1 fl (81.0-99.0); MEAN CORPUSCULAR HGB CONC 32.2 g/dl (33.0-37.0); MEAN PLATELET VOLUME 11.9 fl (9.6-12.3); MONO # 0.7 10*3/uL (0.1-1.0); MONO % 8.2 % (3.0-9.0); NEUT # 6.7 10*3/uL (2.3-7.9); NEUT % 82.3 % (47.0-73.0); PLATELET COUNT AUTOMATED 191 10*3/uL (130-400); RED BLOOD COUNT 4.03 10*6/uL (4.10-5.10); RED CELL DISTRI WIDTH 12.8 % (0-14.5); WHITE BLOOD COUNT 8.2 10*3/uL (4.8-10.8)
[2019-02-05 06:41] LABS: ALBUMIN 3.6 gm/dl (3.1-4.5); CREATININE 1.18 mg/dL (0.55-1.02); POTASSIUM 3.1 mmol/L (3.5-5.1); TOTAL PROTEIN 6.8 gm/dL (6.4-8.2)
[2019-02-05 06:49] LABS: PHOSPHOROUS 0.8 mg/dL (2.5-4.9)
[2019-02-05 08:00] VITALS: BP 160/58
[2019-02-05 12:00] VITALS: BP 165/67
[2019-02-05 16:00] VITALS: BP 152/54
[2019-02-06] VITALS: BP 138/42
[2019-02-06 06:17] LABS: BASO % 0.4 % (0.0-1.0); EOS # 0.1 10*3/uL (0.0-0.4); HEMATOCRIT 38.4 % (37.0-47.0); HEMOGLOBIN 12.3 g/dl (12.0-16.0); LYMPH # 1.2 10*3/uL (1.3-4.4); LYMPH % 14.6 % (27.0-41.0); MEAN CELL VOLUME 90.4 fl (81.0-99.0); MEAN CORPUSCULAR HGB 28.9 pg (27.0-31.0); MEAN PLATELET VOLUME 11.2 fl (9.6-12.3); MONO # 0.7 10*3/uL (0.1-1.0); MONO % 8.2 % (3.0-9.0); NEUT # 6.1 10*3/uL (2.3-7.9); NEUT % 75.6 % (47.0-73.0); PLATELET COUNT AUTOMATED 184 10*3/uL (130-400); RED BLOOD COUNT 4.25 10*6/uL (4.10-5.10); RED CELL DISTRI WIDTH 13.3 % (0-14.5)
[2019-02-06 06:31] LABS: ALBUMIN 3.7 gm/dl (3.1-4.5); ALKALINE PHOSPHATASE 48 U/L (45-117); BUN 12 mg/dl (7-24); CHLORIDE 106 mmol/L (98-107); CREATININE 0.96 mg/dL (0.55-1.02); POTASSIUM 3.9 mmol/L (3.5-5.1); SGOT/AST 19 IU/L (3-35); SGPT/ALT 14 U/L (12-78); SODIUM 138 mmol/L (136-145); TOTAL PROTEIN 6.9 gm/dL (6.4-8.2)
[2019-02-06 08:00] VITALS: BP 173/55
[2019-02-06 12:00] VITALS: BP 104/57
[2019-02-06 20:00] VITALS: BP 140/48
[2019-02-07] VITALS: BP 151/56
[2019-02-07 06:29] LABS: BASO % 0.4 % (0.0-1.0); EOS # 0.2 10*3/uL (0.0-0.4); EOS % 1.9 % (1.0-4.0); HEMATOCRIT 38.8 % (37.0-47.0); HEMOGLOBIN 12.5 g/dl (12.0-16.0); LYMPH % 9.9 % (27.0-41.0); MEAN CELL VOLUME 89.6 fl (81.0-99.0); MEAN CORPUSCULAR HGB 28.9 pg (27.0-31.0); MEAN CORPUSCULAR HGB CONC 32.2 g/dl (33.0-37.0); MEAN PLATELET VOLUME 11.3 fl (9.6-12.3); MONO # 0.7 10*3/uL (0.1-1.0); MONO % 7.6 % (3.0-9.0); NEUT # 7.7 10*3/uL (2.3-7.9); PLATELET COUNT AUTOMATED 175 10*3/uL (130-400); RED BLOOD COUNT 4.33 10*6/uL (4.10-5.10); WHITE BLOOD COUNT 9.6 10*3/uL (4.8-10.8)
[2019-02-07 06:52] LABS: BUN 13 mg/dl (7-24); CHLORIDE 105 mmol/L (98-107); CREATININE 0.99 mg/dL (0.55-1.02); POTASSIUM 3.6 mmol/L (3.5-5.1); SODIUM 140 mmol/L (136-145)
[2019-02-07 08:00] VITALS: BP 139/51
[2019-02-07 12:00] VITALS: BP 128/63
[2019-02-07 16:00] VITALS: BP 115/53
[2019-02-07 20:00] VITALS: BP 134/48
[2019-02-08] VITALS: BP 150/68
[2019-02-08 08:00] VITALS: BP 152/71
[2019-02-08 12:00] VITALS: BP 101/85
[2019-02-08 16:00] VITALS: BP 121/45
[2019-02-08 20:00] VITALS: BP 154/69
[2019-02-09] VITALS: BP 153/50
[2019-02-09 08:00] VITALS: BP 149/52
[2019-02-09] MEDS ORDERED: ZOFRAN4 MG PO (10:05)
== END 2019-02-09 11:21 | disposition home or self-care (01) | DRG 392 ==
LOC: ED 09:09 → EDHOLD 13:27 → 5E 13:27 → EDHOLD 13:48 → 5E 14:16
PROVIDERS: Emergency Medicine; Family Medicine; Hospitalist; Student in an Organized Health Care Education/Training Program; ADMIT Internal Medicine
DX: R10.9 Unspecified abdominal pain (principal); I50.22 Chronic systolic (congestive) heart failure; F11.23 Opioid dependence with withdrawal; G90.3 Multi-system degeneration of the autonomic nervous system; I25.810 Atherosclerosis of coronary artery bypass graft(s) without angina pectoris; Z94.83 Pancreas transplant status; K52.9 Noninfective gastroenteritis and colitis, unspecified; G89.4 Chronic pain syndrome; N18.3 Chronic kidney disease, stage 3 (moderate); E87.6 Hypokalemia; E11.65 Type 2 diabetes mellitus with hyperglycemia; F41.8 Other specified anxiety disorders; E11.42 Type 2 diabetes mellitus with diabetic polyneuropathy; F32.9 Major depressive disorder, single episode, unspecified; E11.319 Type 2 diabetes mellitus with unspecified diabetic retinopathy without macular edema; Z96.659 Presence of unspecified artificial knee joint; R00.1 Bradycardia, unspecified; E83.42 Hypomagnesemia; H54.3 Unqualified visual loss, both eyes; Z66 Do not resuscitate; Z51.5 Encounter for palliative care; E78.5 Hyperlipidemia, unspecified; K21.9 Gastro-esophageal reflux disease without esophagitis; H40.9 Unspecified glaucoma; Z95.0 Presence of cardiac pacemaker; Z95.5 Presence of coronary angioplasty implant and graft; Z95.1 Presence of aortocoronary bypass graft; Z83.6 Family history of other diseases of the respiratory system; Z84.89 Family history of other specified conditions; Z79.899 Other long term (current) drug therapy; Z98.891 History of uterine scar from previous surgery; Z82.49 Family history of ischemic heart disease and other diseases of the circulatory system; Z83.3 Family history of diabetes mellitus; Z90.49 Acquired absence of other specified parts of digestive tract

== ENCOUNTER 2019-02-27 09:01 | Inpatient (IN) | payer OTHER ==
[2019-02-27] VITALS (7 sets, daily range): BP systolic 135–170; BP diastolic 43–60
[~2019-02-27] VITALS: Ht 172.7 cm; Wt 77.6 kg
[~2019-02-27 09:01] MED LIST changes: +FOSAMAX70 M1 PO; +LEVORPHANOL TART2 MG PO; +OYSTER SHELL C1 EAC3 PO; +ZOFRAN4 MG PO
[2019-02-27 10:02] LABS: HEMATOCRIT 36.1 % (37.0-47.0); HEMOGLOBIN 11.9 g/dl (12.0-16.0); MEAN CELL VOLUME 89.8 fl (81.0-99.0); MEAN CORPUSCULAR HGB 29.6 pg (27.0-31.0); MEAN PLATELET VOLUME 11.5 fl (9.6-12.3); PLATELET COUNT AUTOMATED 180 10*3/uL (130-400); RED BLOOD COUNT 4.02 10*6/uL (4.10-5.10); RED CELL DISTRI WIDTH 12.6 % (0-14.5); WHITE BLOOD COUNT 7.3 10*3/uL (4.8-10.8)
[2019-02-27 10:18] LABS: ALBUMIN 3.7 gm/dl (3.1-4.5); ALKALINE PHOSPHATASE 43 U/L (45-117); BUN 22 mg/dl (7-24); CHLORIDE 105 mmol/L (98-107); LIPASE 86 U/L (73-393); SGOT/AST 17 IU/L (3-35); SGPT/ALT 13 U/L (12-78); SODIUM 140 mmol/L (136-145); TOTAL PROTEIN 6.8 gm/dL (6.4-8.2)
[2019-02-27 10:21] LABS: TROPONIN I 0.046 ng/ml (<0.045)
[2019-02-27 10:24] LABS: PLATELET SUFFICIENCY NORMAL (NORMAL); TOTAL CELLS COUNTED 100 #CELLS
[2019-02-27 10:25] LABS: POLYCHROMASIA SLIGHT; SCHISTOCYTES FEW
[2019-02-27 11:36] LABS: BILIRUBIN NEGATIVE (NEGATIVE); BLOOD 1+ (NEGATIVE); CLARITY SL CLOUDY (CLEAR); COLOR YELLOW (YELLOW); GLUCOSE NEGATIVE (NEGATIVE); KETONE TRACE (NEGATIVE); LEUKO ESTERASE 1+ (NEGATIVE); NITRITE POSITIVE (NEGATIVE); PH 5.5 (5.0-9.0); UROBILINOGEN 0.2 E.U./dl (0.2-1.0)
[2019-02-27 11:48] LABS: BACTERIA 4+; WBC 21-30 wbc/hpf (0-5)
--- NOTE | 2019-02-27 13:48 | NUR ---
Dr. Alexandra ans. service notified of consult.
[2019-02-28] VITALS: BP 156/57
[2019-02-28 06:23] LABS: BASO % 0.3 % (0.0-1.0); EOS # 0.1 10*3/uL (0.0-0.4); EOS % 0.7 % (1.0-4.0); HEMATOCRIT 35.7 % (37.0-47.0); HEMOGLOBIN 11.5 g/dl (12.0-16.0); LYMPH # 0.9 10*3/uL (1.3-4.4); LYMPH % 13.6 % (27.0-41.0); MEAN CELL VOLUME 89.3 fl (81.0-99.0); MEAN CORPUSCULAR HGB 28.8 pg (27.0-31.0); MEAN CORPUSCULAR HGB CONC 32.2 g/dl (33.0-37.0); MEAN PLATELET VOLUME 11.6 fl (9.6-12.3); MONO # 0.6 10*3/uL (0.1-1.0); MONO % 8.1 % (3.0-9.0); NEUT # 5.2 10*3/uL (2.3-7.9); PLATELET COUNT AUTOMATED 178 10*3/uL (130-400); RED CELL DISTRI WIDTH 12.7 % (0-14.5); WHITE BLOOD COUNT 6.8 10*3/uL (4.8-10.8)
[2019-02-28 06:29] LABS: ALBUMIN 3.5 gm/dl (3.1-4.5); CREATININE 1.15 mg/dL (0.55-1.02); FREE T4 0.97 ng/dl (0.76-1.46); PHOSPHOROUS 2.9 mg/dL (2.5-4.9); POTASSIUM 3.3 mmol/L (3.5-5.1); TOTAL PROTEIN 6.5 gm/dL (6.4-8.2)
[2019-02-28 06:34] LABS: THYROID STIM HORMONE (HS) 2.85 uIU/ml (0.358-4.75)
[2019-02-28 07:01] LABS: ACT PARTIAL THROMBO TIME 26.4 SECONDS (20.0-32.1)
[2019-02-28 08:00] VITALS: BP 177/64
[2019-02-28 08:25] LABS: VITAMIN D, 25-HYDROXY 37.6 ng/mL (30-100)
--- NOTE | 2019-02-28 11:03 | NUR ---
Occupational therapy orders received and OT evaluation completed in full on floor four. Patient precautions include fall risk, B/L blindness, dizziness, generalized weakness, and IV lines. Per OT eval and POC, patient would benefit from SNF. If refused, home with home health SN, PT, and OT with 24/7 supervision assist. Patient would benefit from continued OT treatment to maximize independence and safety in ADLs and functional transfers/mobility. Thank you for the referral. Nancy Elias, OTR/L
--- NOTE | 2019-02-28 11:13 | NUR ---
NOTIFIED OF CONSULT
--- NOTE | 2019-02-28 11:19 | NUR ---
PRIVATE DUTY NURSE faxed Palliative Care Order to [facility]. -CHLOE Conrad
--- NOTE | 2019-02-28 11:24 | NUR ---
PHYSICAL THERAPY Physical therapy evaluation completed. Full details and evaluation to follow. Moderate complexity skilled PT evaluation performed (20683). PT will work on strength, transfers, gait, balance, and safety per POC. Recommend SNF upon discharge. Thank you, Lianet Acosta, SPT Narcisa Conde,PT,DPT
--- NOTE | 2019-02-28 13:09 | NUR ---
OFF FLOOR FOR STRESS TEST.
--- NOTE | 2019-02-28 13:31 | NUR ---
[facility]. Contacted facility and faxed referral. Will require precert.
--- NOTE | 2019-02-28 13:35 | NUR ---
Late entry - Received call from Christa [facility] nurse practitioner, family/patient would like to have an informational visit at some time with a hospice company.
--- NOTE | 2019-02-28 13:56 | NUR ---
INFORMED SIGNED CONSENT OBTAINED FOR LEXISCAN STRESS TEST WITH DR HILL. RESTING EKG NSR WITH PVC HR 70 BP 156/60. PULSE OX 98% LUNGS CLEAR. PT COMPLETED ONE MINUTE OF A LEXISCAN PROTOCOL WITH PT RECEIVING LEXISCAN 0.4MG IV OVER 10 SEC[address]DS[address] NO ARRHYTHMI[address] OR ST CHANGES NOTED. PT HAD NAUSEA AND CHEST PAIN 6/10 WITH 10 THE WORST WITH INJECTION, POST TEST PT STATES CHEST PAIN AND NAUSEA ARE GONE. LAST RECOVERY HR OF 81 BP 160/72. PT IN STABLE CONDITION, AWAITING NUCLEAR IMAGES.
--- NOTE | 2019-02-28 15:50 | NUR ---
Project Accountant in to talk to patient. Patient states lives at HOME with . There are NO steps in the home. Physician: CASSIDY [facility]acy: [facility] Home health services: [facility] Patient's level of ADLs: MAX ASSIST Patient has working utilities: YES DME: WHEEL CHAIR, LIFT CHAIR Follow-up physician's appointment after d/c: WILL BE MADE BY HOSPITALIST NURSE DIRECTOR ON DISCHARGE Does patient want to access PORTAL?: NO Discharge plan PT LIVES AT HOME WITH HER WHO IS AT BEDSIDE. PT STATES TAKES CARE OF HER AT HOME. SHE ALSO HAS [facility] 7 DAYS A WEEK 8 HOURS A DAY. VOICES THAT HE WOULD LIKE TO HAVE PT GO TO REHAB PRIOR TO COMING HOME SO THAT SHE COULD GET STRONGER. STATES SHE HAS BEEN FALLING AT HOME AND HAS BEEN VERY WEAK. GAVE CHOICES OF FACILITIES, HIS [facility] CHOICE [facility], WITH SECOND CHOICE OF [facility]. ENVIRONMENTAL AIR SPECIALIST INFORMED. WILL CONTINUE TO FOLLOW.. FRANKLIN DE LA ROSA
[2019-02-28 16:00] VITALS: BP 153/53
[2019-02-28 20:00] VITALS: BP 136/48
--- NOTE | 2019-02-28 21:47 | NUR ---
PATIENT IS RESTING IN BED WITH EASY AND REGULAR RESPERS ON ROOM AIR. ASSESSMENT IS COMPLETE WITH NO C/O OR S/S OF DISTRESS NOTED AT THIS TIME. BED IS LOW, LOCKED, ALARMED, AND CALL LIGHT IS WITHIN REACH. WILL CONTNINUE TO MONITOR SEE SHIFT ASSESSMENT. PRN RESTORIL GIVEN AT THIS TIME FOR PATIENT C/O INSOMNIA. WILL MONITOR EFFECT.
--- NOTE | 2019-02-28 22:30 | NUR ---
PRN RESTORIL SEEMS EFFECTIVE, PATIENT IS SLEEPING WITH EASY AND REGULAR RESPERS ON ROOM AIR. CALL LIGHT IS WITHIN REACH.
[2019-03-01] VITALS: BP 150/65
--- NOTE | 2019-03-01 06:02 | NUR ---
PRN ZOFRAN GIVEN AT THIS TIME FOR C/O NAUSEA. CALL LIGHT IS WITHIN REACH, WILL MONITOR EFFECT.
[2019-03-01 08:00] VITALS: BP 146/72
--- NOTE | 2019-03-01 09:39 | NUR ---
PHYSICAL THERAPY Patient presented to therapy in supine with head of bed elevated and bed alarm activated. Patient is on no spO2. Patient was identifed by name and . Patient gives informed consent for treatment. Patient performed supine to sitting at EOB with SBA. Patient sat on EOB with no assistance. Patient sit to stand transfer with SBA to CGA. Patient stood at Walker for 3 times with CGA for 1st attempt being 25 seconds, 2nd attempt 40 seconds and 3rd attempt 48 seconds. Patient transferred back into bed with SBA. Patient does complain of nausea and dizziness. Patient was left in supine position in bed with head of bed elevated, call light within reach, and bed alarm activated. Patient was 1:1 with this CLIENT ASSOCIATE for 16 minutes total. TAHMINA MAST CLIENT ASSOCIATE
--- NOTE | 2019-03-01 09:40 | NUR ---
OT NOTE Pt was seen this A.M. 1:1 for 15 minute OT session. Upon arrival pt was supine in bed. Pt identified by name and and had complaints of feeling nauseated and having diarrhea. Pt transferred supine to sit EOB with CGA for assist due to pt being blind. Pt completed mutliple sit to stand transfers from bed level with CGA and use of w/w with verbal prompts for sequencing. Challenged pt's static standing tolerance needed for increased I in self care tasks and functional transfers, pt was able to tolerate aprox 25 seconds, 40 seconds, and 48 seconds before sitting due to fatigue and feeling nauseated. Throughout static standing pt had two episodes of B knees buckling that required Levon to correct. Pt then transferred back into bed sit to supine with CGA. There she was left with call light in hand, tray table in place, and bed alarm activated for safety. Continue with POC as able. JED Pino/Faar
--- NOTE | 2019-03-01 12:37 | NUR ---
[facility] patient, but they can accept her at [facility] which was patients 2nd choice. Requires precert when patient is medically stable.
--- NOTE | 2019-03-01 13:30 | NUR ---
PT HAS BEEN REFERRED TO [facility] . WILL REQUIRE PRECERT BEFORE GOING. WILL CONTINUE TO FOLLOW.
--- NOTE | 2019-03-01 15:14 | NUR ---
PHYSICAL THERAPY CO-SIGN I approve of the Physical Therapy notes written above. PARVIZ GARY PT, DPT
[2019-03-01 16:00] VITALS: BP 123/60
--- NOTE | 2019-03-01 19:20 | NUR ---
PATIENT RESTING IN BED WITH NO NEEDS MADE. DENIES PAIN. BED IN LOWEST POSITION, CALL LIGHT IN REACH
[2019-03-01 20:00] VITALS: BP 131/62
--- NOTE | 2019-03-01 21:41 | NUR ---
MEDICATED WITH PRN TYLENOL FOR C/O HEADACHE AND RESTORIL FOR C/O SLEEPLESSNESS. WILL MONITOR FOR EFFECTIVENESS
[2019-03-02] VITALS: BP 187/62
[2019-03-02 08:00] VITALS: BP 108/92
--- NOTE | 2019-03-02 08:05 | NUR ---
PHYSICAL THERAPY Patient seen this am 1:1 for therapy visit and was resting supine in bed upon therapist arrival. Patient identified by name / and reports history of increased dizziness / light headedness during all standing activities. Patient transfers supine to sit EOB CGA, demonstrating very slow, methodical movement, tolerating static EOB sit to collect herself. Patient is blind and required multiple v/c's to assist with all therapy activities including sit to stand transfer and [place] [facility] [place] use of wh walker, CGA x 1. Patient reported c/o of 8/10 B LE chronic pain secondary to decreased standing tolerance. Patient tolerated < 45 seconds static stand prior to quick onset of nausea / dizziness. Patient reported within 10 seconds no more dizziness and returned to supine in bed SBA. Patient remained in bed with call light, tray table and bed alarm activated for safety. Will continue per POC as tolerated, total treatment time 14 minutes. Loco Calix, PRINTING MACHINE OPERATOR
--- NOTE | 2019-03-02 08:05 | NUR ---
Updated clinicals faxed to [facility] for precert. waiting on auth
--- NOTE | 2019-03-02 08:18 | NUR ---
OT NOTE Pt was seen this A.M. 1:1 for 15 minute OT session. Upon arrival pt was supine in bed. Pt identified by name and and had complaints of "8/10 BLE pain" which she reported as "this is everyday for me." Pt transferred supine to sit EOB with SBA and verbal prompts due to vision deficits. Pt completed multiple sit to stand transfers from bed level with CGA and use of w/w with verbal prompts. Challenged pt's static standing tolerance needed for increased I in self care tasks and functional transfers. Pt was able to tolerate aprox 45 seconds before sitting due to fatigue and complaints of dizziness. Dizziness she reported was clear after aprox 10 seconds of a seated rest. Pt then completed sit to stand and stand pivot from EOB to and from bedside commode with CGA and use of w/w. Pt then transferred back into bed sit to supine with CGA. There she was left with call light in hand, tray table in place, and bed alarm activated for safety. Continue with POC as able. JED Pino/Fara
[2019-03-02 12:00] VITALS: BP 142/56
--- NOTE | 2019-03-02 14:03 | NUR ---
PT HAS BEEN REFERRED TO [facility]. HAS BEEN ACCEPTED WAITING ON PRECERT. WILL CONTINUE TO FOLLOW.
[2019-03-02 16:00] VITALS: BP 124/57
[2019-03-02 20:00] VITALS: BP 139/43
[2019-03-03] VITALS: BP 116/55
--- NOTE | 2019-03-03 01:12 | NUR ---
24 HR chart check completed.
--- NOTE | 2019-03-03 05:55 | NUR ---
Patient resting quietly with no c/o discomfort. Respirations easy and regular. Vital signs stable. No overt distress. CALL LIGHT WITHIN REACH HISSOM,YOLI
[2019-03-03 08:00] VITALS: BP 112/58
--- NOTE | 2019-03-03 09:31 | NUR ---
OT NOTE Pt was seen this A.M. 1:1 for 17 minute OT session. Upon arrival pt was sitting upright on the EOB. Pt identified by name and and had complaints of "10/10 chronic BLE pain." Pt completed multiple sit to stand transfers from bed level with CGA and use of w/w with verbal prompts for hand placement due to pt being blind. Challenged pt's static standing tolerance needed for increased I in self care tasks and functional transfers, pt was able to tolerate aprox 20-40 seconds at a time before sitting due to complaints of "severe dizziness." After aprox 30-40 seconds pt reported that is was cleared. Attempted to complete BUE theraputic exercise however was unable due to complaints of dizziness. Pt then transferred back into bed sit to supine with SBA. There she was left with call light in hand, tray table in place, and bed alarm activated for safety. Continue with POC as able. JED Pino/Fara
--- NOTE | 2019-03-03 09:31 | NUR ---
PHYSICAL THERAPY Patient presented to therapy in SITTING at EOB with head of bed elevated and report of 10/10 pain in her feet and legs. Patient was identified by name and on wrist band. Patient gives informed consent for treatment. Patient performed sit to stand from EOB with CGA X 1 with verbal cues for pushing off of handrail of bed with L hand. Patient performed standing tolerance 3 times 1st) 20 seconds 2) 32 seconds 3) 38 seconds with CGA X 2. Patient became dizzy each time and had to sit. Patient transferred back to supine in bed with SBA. Patient was left in supine in bed with head of bed elevated, call light within reach, and bed alarm activated. Patient was 1:1 with this HEAVY DUTY MECHANIC FARM EQUIPMENT for 16 minutes total. TAHMINA MAST HEAVY DUTY MECHANIC FARM EQUIPMENT
--- NOTE | 2019-03-03 11:30 | NUR ---
assumed care for this pt at this time. pt sitting up in chair eating lunch. no c/o voiced. call light in reach.
[2019-03-03 12:00] VITALS: BP 119/51
--- NOTE | 2019-03-03 12:45 | NUR ---
Patient received auth for [facility], Patient is ok to go if medically stable for discharge.
[2019-03-03] MEDS ORDERED: CEPHALEXIN500 M1 PO (13:48)
[2019-03-03] MEDS ORDERED: GABAPENTIN800 MG PO ×2 (13:50→14:03)
--- NOTE | 2019-03-03 14:29 | NUR ---
Patient is discharged to [facility] at 3PM. NH, nursing/union steward and all notified.
--- NOTE | 2019-03-03 15:54 | NUR ---
PHYSICAL THERAPY CO-SIGN I approve of the Physical Therapy notes written above. PARVIZ GARY PT,DPT
--- NOTE | 2019-03-03 16:35 | NUR ---
NURSE TO NURSE REPORT GIVEN TO [facility] AT [facility].
--- NOTE | 2019-03-04 13:01 | NUR ---
OCCUPATIONAL THERAPY CO-SIGN I approve of the Occupational Therapy notes written above. ALVARADO CHAVEZ OTR/Fara
--- NOTE | 2019-03-04 13:30 | NUR ---
[facility] contacted DELON Dillon and stated patient arrived to [facility] yesterday afternoon and then signed out AMA the same day. They stated she was not upset about the facililty, but about the comments her made about her being a burden to him. She stated it was because she is having marital problems.
== END 2019-03-03 15:06 | disposition home or self-care (01) | DRG 689 ==
LOC: ED 09:01 → 4E 11:26 → EDHOLD 11:26 → ICCU 11:45 → 4E 12:01
PROVIDERS: Physician Assistant; ADMIT Family Medicine
PROC: 3E073KZ Introduction of Other Diagnostic Substance into Coronary Artery, Percutaneous Approach (ICD-10-PCS; principal; 2019-02-28)
PROC: 4A02XM4 Measurement of Cardiac Total Activity, External Approach (ICD-10-PCS; principal; 2019-02-28)
DX: N39.0 Urinary tract infection, site not specified (principal); N17.0 Acute kidney failure with tubular necrosis; I50.20 Unspecified systolic (congestive) heart failure; G90.3 Multi-system degeneration of the autonomic nervous system; I13.0 Hypertensive heart and chronic kidney disease with heart failure and stage 1 through stage 4 chronic kidney disease, or unspecified chronic kidney disease; Z94.83 Pancreas transplant status; R07.89 Other chest pain; F41.8 Other specified anxiety disorders; D64.9 Anemia, unspecified; E83.41 Hypermagnesemia; N18.3 Chronic kidney disease, stage 3 (moderate); R74.8 Abnormal levels of other serum enzymes; I25.10 Atherosclerotic heart disease of native coronary artery without angina pectoris; G89.4 Chronic pain syndrome; Z51.5 Encounter for palliative care; E13.22 Other specified diabetes mellitus with diabetic chronic kidney disease; E13.40 Other specified diabetes mellitus with diabetic neuropathy, unspecified; E13.319 Other specified diabetes mellitus with unspecified diabetic retinopathy without macular edema; E13.65 Other specified diabetes mellitus with hyperglycemia; Z66 Do not resuscitate; Z83.6 Family history of other diseases of the respiratory system; Z95.1 Presence of aortocoronary bypass graft; Z79.4 Long term (current) use of insulin; Z83.3 Family history of diabetes mellitus; Z82.49 Family history of ischemic heart disease and other diseases of the circulatory system

== ENCOUNTER 2019-03-10 12:18 | Emergency (ER) | payer OTHER ==
[~2019-03-10] VITALS: Ht 172.7 cm; Wt 72.6 kg
--- NOTE | ~2019-03-10 | EKG ---
[place], [place] ELECTROCARDIOGRAM REPORT NAME: ALVARADO CORTEZ UNIT #: [id number] ROOM: DOCTOR: EPIPHANY DRAFT REPORT BIRTHDATE: [birth year] [facility] Test Date: 2019-03-10 Test Time: 13:00:30 Pat Name: ALVARADO CORTEZ Department: Room: Gender: F Nitrocellulose Maker: : 1955 Requested By: LUCIA TOLENTINO Order Number: [id number] Reading MD: Ruth Green MD Measurements Intervals [place] Rate: 60 P: [place]: 181 QRS: 17 QRSD: 84 T: 237 QT: 458 QTc: 458 Interpretive Statements Atrial-paced rhythm Repol abnrm suggests ischemia, anterolateral Compared to ECG 02/27/2019 15:40:25 Early repolarization now present Sinus rhythm no longer present T-wave abnormality no longer present Possible ischemia still present Electronically Signed On 03-11-2019 8:52:17 PDT by Ruth Green MD CM:EKGRPT:ELECTROCARDIOGRAM REPORT [id number] LUCIA TOLENTINO MD EPIPHANDREW DRAFT REPORT LUCIA TOLENTINO MD
[~2019-03-10 12:18] MED LIST changes: +CEPHALEXIN500 M1 PO
[2019-03-10 13:04] LABS: BASO % 0.4 % (0.0-1.0); EOS # 0.1 10*3/uL (0.0-0.4); EOS % 0.7 % (1.0-4.0); HEMOGLOBIN 11.1 g/dl (12.0-16.0); LYMPH # 1.2 10*3/uL (1.3-4.4); LYMPH % 17.4 % (27.0-41.0); MEAN CELL VOLUME 89.7 fl (81.0-99.0); MEAN CORPUSCULAR HGB 29.3 pg (27.0-31.0); MEAN CORPUSCULAR HGB CONC 32.6 g/dl (33.0-37.0); MEAN PLATELET VOLUME 11.7 fl (9.6-12.3); MONO # 0.7 10*3/uL (0.1-1.0); MONO % 10.8 % (3.0-9.0); NEUT # 4.7 10*3/uL (2.3-7.9); NEUT % 70.4 % (47.0-73.0); PLATELET COUNT AUTOMATED 192 10*3/uL (130-400); RED BLOOD COUNT 3.79 10*6/uL (4.10-5.10); RED CELL DISTRI WIDTH 13.2 % (0-14.5); WHITE BLOOD COUNT 6.7 10*3/uL (4.8-10.8)
[2019-03-10 13:15] LABS: CREATININE 1.52 mg/dL (0.55-1.02); POTASSIUM 3.3 mmol/L (3.5-5.1)
[2019-03-10 13:16] LABS: ACT PARTIAL THROMBO TIME 24.5 SECONDS (20.0-32.1); INTERNATIONAL NORM RATIO 1.1 (2.0-3.5)
[2019-03-10 15:18] VITALS: BP 148/43
[2019-03-10] MEDS ORDERED: MAGNESIUM400 MG PO (15:22)
== END 2019-03-10 16:35 | disposition home or self-care (01) ==
LOC: ED 12:18
PROVIDERS: Emergency Medicine
DX: E83.42 Hypomagnesemia (principal); E10.22 Type 1 diabetes mellitus with diabetic chronic kidney disease; N18.2 Chronic kidney disease, stage 2 (mild); E87.6 Hypokalemia; E10.42 Type 1 diabetes mellitus with diabetic polyneuropathy; R07.9 Chest pain, unspecified; R42 Dizziness and giddiness; E10.319 Type 1 diabetes mellitus with unspecified diabetic retinopathy without macular edema; I48.91 Unspecified atrial fibrillation; I25.10 Atherosclerotic heart disease of native coronary artery without angina pectoris; G89.29 Other chronic pain; Z79.899 Other long term (current) drug therapy; Z79.2 Long term (current) use of antibiotics; Z90.49 Acquired absence of other specified parts of digestive tract; Z94.83 Pancreas transplant status; Z95.0 Presence of cardiac pacemaker; Z95.1 Presence of aortocoronary bypass graft

== ENCOUNTER → 2019-04-29 | Outpatient (CLI) | payer MEDICARE, OTHER ==
[~2019-04-29] MED LIST changes: +MAGNESIUM400 MG PO
== END | disposition home or self-care (01) ==
LOC: CT 09:53
DX: G93.89 Other specified disorders of brain (principal); G44.319 Acute post-traumatic headache, not intractable